=== PATIENT | female | born 1990 | race Caucasian/White ===

== ENCOUNTER 2024-11-16 14:28 | Outpatient (REF) | payer OTHER, SELFPAY ==
[2024-11-16 18:49] LABS: MANUAL DIFF FLAG NO
[2024-11-16 19:01] LABS: Hematocrit 37.5 % (37.0-47.0); Hemoglobin 13.3 g/dl (12.0-16.0); Imm Gran Abs Auto 0.02 X10*3/uL (0.00-0.03); Imm Gran Pct Auto 0.3 % (0.0-0.4); Lymphocytes Absolute Auto 2.9 X10*3/uL (1.2-4.9); Mean Corpuscular HGB Conc 35.5 g/dl (31.0-35.0); Mean Corpuscular Hemoglobin 32.4 pg (27.0-33.0); Mean Corpuscular Volume 91.2 fL (80.0-98.0); NRBC Abs Auto 0.000 X10*3/uL (0.0-0.012); NRBC Pct Auto 0.0 /100WBC (0.0-0.2); Platelet Count 286 X10*3/uL (160-400); Red Blood Count 4.11 X10*6/uL (4.20-5.50); White Blood Count 7.8 X10*3/uL (4.8-10.8)
[2024-11-16 19:11] LABS: Alanine Aminotransferase 30 U/L (0-31); Albumin Level 4.5 g/dL (3.5-5.0); Alkaline Phosphatase 70 U/L (39-117); Anion Gap 11 (12-20); Aspartate Amino Transferase 28 U/L (5-31); Blood Urea Nitrogen 12 mg/dL (9-16); Calcium 9.7 mg/dL (8.4-10.2); Carbon Dioxide 28 mmol/L (22-29); Chloride 103 mmol/L (96-108); Cholesterol 230 mg/dL (<200); Estimated Glomerular Filt Rate > 60; HDL Cholesterol 51 mg/dL (>40); Potassium 3.8 mmol/L (3.3-5.1); Sodium 138 mmol/L (135-145); Total Protein 7.1 g/dL (6.5-8.0); Triglycerides 171 mg/dL (<150)
== END 2024-11-16 14:29 | disposition home or self-care (01) ==
LOC: HO.LNP 14:28
PROVIDERS: PCP Internal Medicine; Visit Provider Internal Medicine
DX: Z00.00 Encounter for general adult medical examination without abnormal findings (principal); E78.5 Hyperlipidemia, unspecified; R35.89 Other polyuria; E66.9 Obesity, unspecified; F41.9 Anxiety disorder, unspecified; F32.A Depression, unspecified
CPT/HCPCS: 80053; 80061; 83036; 84443; 85025; 96127; 99385

== ENCOUNTER 2024-11-16 14:28 | Outpatient (AMB) | payer OTHER, SELFPAY ==
--- OUTSIDE RECORDS SUMMARY | 2024-11-16 14:33 | XMS_ITS | Clinical Summary ---
Author Organization [facility] Address [address] [place] [address] Phone Care Team Providers Care Service Support Representative Name Role Phone Unavailable Primary Care Provider Unavailabl e Immunizations Immunization Administration Dates Next Due DTaP 07/22/1997, 4,07/22/1993, 993,1992,1992 H1N1 12/15/2008 HPV, Quadrivalent 11/25/2007,04/19/2007,08/26/19 07 Hep B 04/13/1993,1992,1992 Hib, unspecified formulation 10/23/1993, 01/13/1993,1992, 993 IPV 07/22/1997, 4,07/22/1993, 993,1992 Influenza 02/21/2013, 2,01/02/2011, 010 MMR 07/22/1997,10/23/1993 Meningococcal Conj (Menactra) MCV4P 09/28/2011,0 08/25/2006 Td 08/09/2003 Tdap 08/25/2006 Family History Relation Name Status Comments Other 1 / Family Histor y of ADHD Other 2 Family History of ADHD Other 3 Family History of ADHD Father---ADHD,Anxiety on wellbutrin, sees ADD cross country coach Mother---anxiety om wellbutrin Other 4 Family History of ADHD Father---ADHD,Anxiety on wellbutrin, sees ADD cross country coach Mother---anxiety om wellbutrin Family History of Diabetes - Fa Social History Tobacco Use Types Packs/Day Years Used Date Smoking Tobacco: Never Assessed Comments:none Comments Unknown Sex and Gender Information Value Date Recorded Sex Assigned at Not on file Legal Sex Female 11:48 PM EST Gender Identity Not on file Sexual Orientation Not on file Last Filed Vital Signs Vital Sign Reading Time Taken Comments Blood Pressure 122/68 02/28/2014 1:55 PM EST Pulse - - Temperature - - Respiratory Rate - - Oxygen Saturation - - Inhaled Oxygen Concentration - - Weight 92.6 kg (204 lb 4 oz) 02/28/2014 1:55 PM EST Height 155.6 cm (5' 1.25 ) 02/28/2014 1:55 PM ES T Body Mass Index 38.28 02/28/2014 1:55 PM EST Plan of Treatment Health Maintenance Due Date Last Done Comments Varicella Vaccines (1 of 2 - 13+ 2-dose series) 2005 DTaP,Tdap,and Td Vaccines (7 - Td or Tdap) 08/25/2016 08/25/2006, 08/09/2003, 07/22/1997, Additional history exists Influenza Vaccines (#1) 2024 02/21/19 14, 11/17/2011, 01/02/2011, Additional history exists COVID-19 Vaccine (2024- season) 2024 Hepatitis B Vaccines Completed 04/13/1993, 1992, 1992 HIB Vaccines Completed 10/23/1993, 12/17, 1992, Additional history exists IPV Vaccines Completed 07/22/1997, 10/1993, 07/22/1993, Additional history exists MMR Vaccines Completed 07/22/1997, 10/23/1993 HPV Vaccines Completed 11/25/2007, 06/2007, 08/25/2006 Meningococcal Vaccine Aged Out 09/28/2011, 007 No longer eligible based on patient's age to complete this topic Hepatitis A Vaccines Aged Out No long er eligible based on patient's age to complete this topic Men B Vaccine Aged Out No longer elig ible based on patient's age to complete this topic Pneumococcal Vaccine Aged Out No long er eligible based on patient's age to complete this topic
--- OUTSIDE RECORDS SUMMARY | 2024-11-16 14:33 | XMS_ITS | Clinical Summary ---
Author Organization [facility] Address [address] [address] Phone Care Team Providers Care Fur Stylist Name Role Phone Unknown, Unknown Primary Care Provider Unavai lable Allergies No known active allergies Medications busPIRone (BUSPAR) 10 MG tablet Active buPROPion (WELLBUTRIN XL) 300 MG ER 24 hr tablet 1 Active ALPRAZolam (XANAX) 1 MG tablet 1 Active atomoxetine (STRATTERA) 40 MG capsule Take 1 capsule by mouth 2 (two) times a day. 3 Active VIENVA 0.1-20 mg-mcg per tabletIndications: OCP (oral contraceptive pills) initiation TAKE 1 TABLET BY MOUTH EVERY DAY 84 tablet 1 5 Active Active Problems Problem Noted Date Diagnosed Date Class 3 severe obesity due t o excess calories without serious comorbidity with body mass index (BMI) of 50.0 to 59.9 in adult 04/26/2022 07/28/2022 Overview (07/28/2022): Patient is stable, has had difficulties with weight loss, referral placed to weight management clinic. She has started trulicity. STEPHANY (obstructive sleep apnea) 09/09/2019 Uncoded Health Care Proxy on file 01/19/162015 Overview (03/06/2016): Health Care Proxy on file 01/19/16 Attention deficit hyperactivity disorder 016 Overview (03/06/2016): Attention deficit hyperactivity disorder Episodic mood disorder 04/23/2015 Overview (03/06/2016): Mood disorder Panic disorder 04/23/2015 Overview (03/06/2016): Panic disorder PTSD (post-traumatic stress disorder) 04/23/2015 Overview (03/06/2016): Posttraumatic stress disorder Uncoded periorbital trauma od-no residual injury 07/18/2007 Overview (04/06/2014): periorbital trauma od-no residual injury Resolved Problems Problem Noted Date Diagnosed Date Resolved Date Myopia 02/13/2007 07/28/2022 Overview (04/06/2014): myopia; minimal Encounters Date Type Department Care Team Description 09/07/2024 Telephone [facility] [address] [place] [address] Rashaad Santos MD Appointment from Last 3 Months Immunizations Immunization Administration Dates Next Due DT 08/09/2003 DTP 07/22/1997,01/22/1994,01/13/1993 DTaP 07/22/1993 DTaP, unspecified formulation 08/25/2006, 993,1992 [id number] FORMULATION 12/15/2008 HPV, unspecified formulation 11/25/2007,04/19/19 08,08/25/2006 Hepatitis B, unspecified formulation 04/13/1993, 1992,1992 Hib, unspecified formulation 10/23/1993, 01/13/1993,1992,09/12 Influenza Quadrivalent Prese rvative Free IM 12/23/2019,01/19/2016 Influenza Recombinant Mak valent Preservative Free IM 12/26/2018,12/26/2018 Influenza, Unspecified Formulation 02/21,11/17/2011,01/02/2011,12/28,12/15/2008 MMR 07/22/1997,10/23/1993 Meningococcal MCV4, unspecif ied Formulation 09/28/2011,08/25/2006 Polio, Unspecified Formulation 8,01/22/1994,07/22/1993,11/06,1992 Td, unspecified formulation 08/09/2003 Tdap 12/26/2018,08/25/2006 Family History Medical History Relation Comments Anxiety disorder Father Depression Father Type 2 Diabetes Father diabetes mellitu s type 2 Anxiety disorder Mother Depression Mother Relation Status Comments Father Alive Mother Alive Social History Tobacco Use Types Packs/Day Years Used Date Smoking Tobacco: Never Smokeless Tobacco: Never Tobacco Cessation:Counseling Given: Not Answered Alcohol Use Standard Drinks/Week Comments Yes 0 (1 standard drink = 0.6 oz pur e alcohol) 1 x a wk Education Answer Date Recorded Are you interested in more education? Not on nila e 06/11/2022 Are you concerned about learning? Not on file 06/11/2022 No 06/11/2022 No 06/11/2022 Digital Access Answer Date Recorded No 07/12/2022 No 07/12/2022 Reliable internet access at home? Not on file 07/12/2022 Device with a working camera? 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 [employer] Not on file Not on file No t on file Last Filed Vital Signs Vital Sign Reading Time Taken Comments Blood Pressure 136/82 08/23/2023 4:07 PM EDT Pulse 72 01/19/2016 11:04 AM EST Temperature 36.4 C (97.6 F) 01/19/2016 11:04 AM EST Respiratory Rate - - Oxygen Saturation - - Inhaled Oxygen Concentration - - Weight 109.6 kg (241 lb 9.6 oz) 08/23/2023 4:07 PM EDT Height 156.2 cm (5' 1.5 ) 08/16/2022 2:38 PM EDT Body Mass Index 44.91 08/16/2022 2:38 PM EDT Plan of Treatment Health Maintenance Due Date Last Done Comments DEPRESSION SCREENING 2004 INFLUENZA VACCINE (#1) 2024 , 12/26/2018, 12/26/2018, Additional history exists COVID-19 VACCINE (2024- season) 2024 2020, 06/16/2020 PAP SMEAR 08/22/2026 08/23/2023, 02/14, 12/09/2017, Additional history exists Adult Td,Tdap Booster 12/26/2028 12/26/2018 , 08/25/2006, 08/09/2003 HIB VACCINES Completed 10/23/1993, 12/17, 1992, Additional history exists MENINGOCOCCAL VACCINES (ACWY) Aged Out 09/28/2011, 08/25/2006 No longer eligibl e based on patient's age to complete this topic HEPATITIS C SCREENING Completed 08/23/2023 , 07/28/2022, 02/23/2021, Additional history exists HIV ONE-TIME SCREENING (18-65 YEARS) Completed 08/23/2023 SMOKING STATUS SCREENING (Once After 26 Yrs) Completed 08/23/2023 HEPATITIS A VACCINES Aged Out No long er eligible based on patient's age to complete this topic MENINGOCOCCAL VACCINES (B) Aged Out N o longer eligible based on patient's age to complete this topic PNEUMOCOCCAL VACCINES (0-49 years) Aged Out No longer eligible based on patient's age to complete this topic Medical Devices Not on file Procedures Procedure Name Priority Date/Time Associated Diagnosis Comments HEPATITIS C ANTIBODY, QUALITATIVE Routine 08/23/2023 4:38 PM EDT Routine screening for STI (sexually transmitted infection) PAP TEST Routine 08/23/2023 12:00 AM EDT from Last 3 Months or Most Recently Relevant to Health Maintenance Results * Hepatitis C antibody, qualitative (08/23/2023 4:38 PM EDT) HCV NON-REACTIV E NON-REACTI VE [facility] Blood 08/23/2023 4:38 PM EDT 08/23/2023 4:53 PM EDT us Rashaad Santos MD LAB BLOOD ORDERABLES Final Resul t [address] [address] * Pap Test (08/23/2023 12:00 AM EDT) 08/23/2023 08/24/2023 9:2 8 AM EDT Narrative SEE NARRATIVE - 08/29/2023 3:11 PM EDT [address] [address] Geographic Information Systems Engineer: Leti Juan MD VIBRATION ANALYST Cytology Report FINAL DIAGNOSIS A. PAP SMEAR (THIN PREP) CE: SPECIMEN ADEQUACY: Satisfactory for evaluation; transformation zone present. INTERPRETATION: NEGATIVE FOR INTRAEPITHELIAL LESION OR MALIGNANCY. Reactive changes. This specimen was analyzed by the automated ThinPrep Imaging System ([employer] and manually rescreened by a merchandise worker and/or pathologist. Electronically Signed Out By: MD Gricel Leiva CT(ASCP) By his/her signature above, the pathologist listed as making the Final Diagnosis certifies that he/she has personally reviewed this case and confirmed or corrected the diagnosis. The Pap test is a screening test primarily for squamous cancers and precursors and has associated false-negative and false-positive results. New technologies such as liquid-based preparations may decrease but will not eliminate all false-negative results. Regular sampling and follow-up of unexplained clinical signs and symptoms are recommended to minimize false negative results. PROCEDURES/ADDENDA HPV Testing (Requested) Ordered Date: 08/24/2023 A. PAP SMEAR (THIN PREP) CE: Human Papilloma Virus Test NEGATIVE for high-risk Human Papilloma Virus types 16, 18, 45 and the Other high risk probe set (Includes 31, 33, 35, 39, 51, 52, 56, 58, 59, 66, 68) Note: Testing performed by [employer] HR-HPV analysis. Clinical correlation is advised. This HPV test was performed at [facility], [address] [place] [address]. This test has been FDA approved for both SurePath and ThinPrep cervical cytology specimens. The accuracy and precision of this test for all other specimen sources has been verified in the Cytopathology Laboratory of the [facility] and has not been cleared or approved by the U.S. Food and Drug Administration. Clinical correlation is advised. CLINICAL HISTORY Date of Last Menstrual Period: 07-27-2023 Contraceptive History: BCPs Other Clinical Conditions: Screening Pap SPECIMEN SOURCE A: PAP SMEAR (THIN PREP) CE Patient Name: DESTIN ZULETALINE : 1990 (Age: 33) Sex: F Institution: [facility] Location: [facility] Date of Collection: 08/23/2023 Date of Reported: 08/29/2023 15:11 Results to: Rashaad Santos MD Rashaad Santos MD CYTOLOGY ORDERABLES Final Result SEE NARRATIVE from Last 3 Months or Most Recently Relevant to Health Maintenance [place] [address] [place] [address] NON NSPG PCP [facility] NON NSPG PCP [facility] NON NSPG PCP [facility] [place] NON NSPG PCP S[facility] NON NSPG PCP [facility]G P[facility] Advance Directives For more information, please contact: [phone] (9AM - 5PM [facility], [facility]Tuesday) Documents on File Type Date Recorded Patient Doorkeeper Expl anation Advance Directive - Non Epic LMR 01/19/2016 12:00 AM Care Teams Fur Stylist Relationship Specialty Start Date End Date Unknown, Unknown, PCP - General 01/22/21 Additional Source Comments The information contained in this document represents components of the legal health record. It is not the complete legal health record.[facility]
--- NOTE | 2024-11-16 14:42 | A.OFFPC_ITS ---
Intake Visit Reasons: CPE HPI HPI Comments History of Present Illness Details 34 year old female with a past medical h istory of anxiety, depression, hyperlipidemia presenting to establish care & CPE BH: Follows with psychiatry She is overweight. She has tried exercising, making dietary changes but has not been able to lose a significant amount of weight. She is holding her weight steady. She says she has not gained weight for awhile. She is considering a GLP, she is not sure if her insurance covers it histologic aide-[facility]. reports UTD Declines Tdap today Declines flu vaccine ROS CONSTITUTIONAL: Denies weight loss, fever and chills. HEENT: Denies changes in vision and hearing. RESPIRATORY: Denies SOB and cough. CV: Denies palpitations and CP GI: Denies abdominal pain, nausea, vomiting and diarrhea. : Denies dysuria and urinary frequency. MSK: Denies new myalgia and joint pain. SKIN: Denies rash and pruritus. NEUROLOGICAL: Denies headache PSYCHIATRIC: Denies recent changes in mood. PHYSICAL EXAM: GENERAL: Alert and oriented x 3. NAD EYES: EOMI. Anicteric. HENT: Moist mucous membranes. No scleral icterus. No cervical lymphadenopathy. LUNGS: Clear to auscultation bilaterally. CARDIOVASCULAR: Regular rate and rhythm. No murmur. No JVD. ABDOMEN: Soft, non-tender +bs EXTREMITIES: No edema. Non-tender. SKIN: No rashes or lesions. Warm. NEUROLOGIC: No focal neurological deficits. CN II-XII grossly intact PSYCHIATRIC: Cooperative. Appropriate mood and affect Questionnaire PHQ-9 Over the last 2 weeks, how often have you been bothered by any of the following problems? 1. Little interest or pleasure in doing things: not at all 2. Feeling down, depressed, or hopeless: several days 3. Trouble falling or staying asleep, or sleeping too much: more than half the days 4. Feeling tired or having little energy: several days 5. Poor appetite or overeating: not at all 6. Feeling bad about yourself - or that you are a failure or have let yourself or your family down: several days 7. Trouble concentrating on things, such as reading the newspaper or watching television: not at all 8. Moving or speaking so slowly that other people could have noticed. Or the opposite - being so fidgety or restless that you have been moving around a lot more than usual: not at all 9. Thoughts that you would be better off or of hurting yourself in some way: not at all Total score: 5 Depression Screening Interpretation: Positive Depression Screening Follow-up: Existing condition Depression Screening Done: Yes 74638 - PHQ-9 Billing: Yes Source: Developed by Drs. Dano Willingham, Rena Allen, Artemio Muñiz and colleagues, with an educational isma from [employer]. Thrive Questionnaire I am a: Patient What is your living situation today?: I have a steady place to live Within the past 12 months, did the food you bought not last and you didn't have the money to get more?: Never true Within the past 12 months, did you worry whether your food would run out before you got money to buy more?: Never true Do you have trouble paying for medicines?: No Do you have trouble getting transportation to medical appointments?: No Do you have trouble paying your heating and electricity bill?: No Do you have trouble taking care of your child, family member or friend?: No Do you have trouble with day-to-day activities such as bathing, preparing meals, shopping, managing finances, etc.?: No Are you currently unemployed and looking for a job?: No Are you interested in more education?: Yes Please select the resources that you would like help with: None Currently or been in a relationship where the following occur: No concerns reported THRIVE Score: 0 AUDIT C Alcohol Use Questionnaire (AUDIT-C) 1. How often do you have a drink containing alcohol?: 2-4 times a month 2. How many drinks containing alcohol do you have on a typical day when you are drinking?: 3 or 4 3. How often do you have six or more drinks on one occasion?: Never Total Score: 3 ANNA-7 AMB Questionnaire ANNA-7 Feeling nervous, anxious, or on edge: 1 = Several days Not being able to stop or control worryin = Several days Worrying too much about different things: 0 = Not at all Trouble relaxin = Several days Being so restless that it is hard to sit still: 0 = Not at all Becoming easily annoyed or irritable: 1 = Several days Feeling afraid as if something awful might happen: 1 = Several days Total ANNA-7 score (0-4 normal; 5-9 mild; 10-14 moderate; 15-21 severe): 5 Source: Developed by Drs. Dano Willingham, Rena Allen, Artemio Muñiz and colleagues, with an educational isma from [employer]. Physical exam (Primary Care) PHQ-9: PHQ-9 Score PHQ-9: Total score 5 11/16/24 14:51 Depression Screening Interpretation: Positive Depression Screening Follow-up: Existing condition Currently or been in a relationship where the following occur: No concerns reported Coding Level of Care Code New Pt Prev Care 18-39yr([id number] Diagnoses Obesity (BMI 35.0-39.9 without comorbidity) E66.9 Anxiety and depression F41.9; F32.A Additional Codes PHQ-9 - 74128 - PHQ-9 Billing: Yes ([id number]) Assessment & Plan Assessment & Plan (1) Obesity (BMI 35.0-39.9 without comorbidity): Code(s): E66.9 - Obesity, unspecified Category: Medical (2) Anxiety and depression: Code(s): F41.9 - Anxiety disorder, unspecified; F32.A - Depression, unspecified Category: Medical Plan 34 year old female presenting to establish care & for CPE Past medical, surgical, social reviewed Preventive measures for age discussed Discussed weight. She will check with insurance and continue to think about whether she wants to consider pharmacologic weight loss Labs ordered Declines tdap & flu today Orders: Orders Complete Blood Count Auto Diff 11/16/24 E78.5 - Hyperlipidemia, unspecified, R35.89 - Other polyuria, Z00.00 - Encounter for general adult medical examination without abnormal findings, Z13.0 - Encounter for screening for diseases of the blood and blood-forming organs and certain disorders involving the immune mechanism Comprehensive Met. Panel 11/16/24 E78.5 - Hyperlipidemia, unspecified, R35.89 - Other polyuria, Z00.00 - Encounter for general adult medical examination without abnormal findings, Z13.0 - Encounter for screening for diseases of the blood and blood-forming organs and certain disorders involving the immune mechanism Lipid Panel 11/16/24 E78.5 - Hyperlipidemia, unspecified, R35.89 - Other polyuria, Z00.00 - Encounter for general adult medical examination without abnormal findings, Z13.0 - Encounter for screening for diseases of the blood and blood-forming organs and certain disorders involving the immune mechanism TSH reflex Free T4 11/16/24 E78.5 - Hyperlipidemia, unspecified, R35.89 - Other polyuria, Z00.00 - Encounter for general adult medical examination without abnormal findings, Z13.0 - Encounter for screening for diseases of the blood and blood-forming organs and certain disorders involving the immune mechanism Hemoglobin A1c 11/16/24 E78.5 - Hyperlipidemia, unspecified, R35.89 - Other polyuria, Z00.00 - Encounter for general adult medical examination without a bnormal findings, Z13.0 - Encounter for screening for diseases of the blood and blood-forming organs and certain disorders involving the immune mechanism
== END 2024-11-16 15:04 | disposition home or self-care (01) ==
LOC: HO.HMCFM 14:29
PROVIDERS: PCP Internal Medicine; Visit Provider Internal Medicine
DX: E66.9 Obesity, unspecified (principal); F41.9 Anxiety disorder, unspecified; F32.A Depression, unspecified; Z00.00 Encounter for general adult medical examination without abnormal findings